=== PATIENT | female | born 1935 | race Two or more races ===

== ENCOUNTER 2018-09-19 13:40 | Inpatient (IN) | payer MEDICARE, OTHER ==
[~2018-09-19] VITALS: Ht 157.5 cm; Wt 55.8 kg
--- NOTE | 2018-09-19 13:40 | NUR ---
Patient is here in our ER department for medical clearance. Patient was accepted by psych Dr Schafer & [facility] hospitalist Gianni per nursing millwright supervisor Luis. Medical records from [facility] indicated that this patient has suicidal thoughts ( "cutting her wrist"). Patient is cooperative@this time. Patient's son & grandson are at bedside.
[2018-09-19] MEDS ORDERED: VORT5TAB PO (13:55)
[2018-09-19] MEDS ORDERED: [UNRECOGNIZED DRUG - OTHER] PO (14:00)
[2018-09-19] MEDS ORDERED: DOXA2TAB PO (14:00)
[2018-09-19] MEDS ORDERED: GABA-532 PO (14:00)
[2018-09-19] MEDS ORDERED: LIPA1CAP15 PO (14:00)
[2018-09-19] MEDS ORDERED: LOSA1TAB39 PO (14:00)
[2018-09-19] MEDS ORDERED: ZOLP10TA6 PO (14:00)
[2018-09-19 15:00] VITALS: BP 161/53
--- NOTE | 2018-09-19 15:00 | NUR ---
Patient is depressed, anxious affect, constantly crying, feeling hopeless and helpless, denies any suicidal ideation, but stated "This depression started when my doctor change my medication . patient lives at home with family feels helpless and hopeless on 5150 for DTS .
[2018-09-19] MEDS ORDERED: MAGNESIUM HYDROXIDE 30 ML LIQUID UDC PO PRN (15:15)
[2018-09-19] MEDS ORDERED: TEMAZEPAM 7.5 MG CAPSULE PO PRN (15:15)
[2018-09-19] MEDS ORDERED: LORAZEPAM 0.5 MG TABLET PO PRN (15:15)
[2018-09-19] MEDS ORDERED: ACETAMINOPHEN 325 MG TABLET PO PRN (15:15)
[2018-09-19] MEDS ORDERED: CLONIDINE HCL 0.1 MG TABLET PO PRN (16:45)
[2018-09-19] MEDS: LIPASE/PROTEASE/AMYLASE 4200 UNITS CAPSULE.DR PO SCH (17:00)
[2018-09-19] MEDS ORDERED: Medication Not On Formulary EA (Lipase/Protease/Amylase (Creon Dr 36,000 Units Capsule) PO SCH (17:00)
[2018-09-19] MEDS: GABAPENTIN 100 MG CAPSULE PO SCH (17:00)
[2018-09-19] MEDS: DOXAZOSIN 2 MG TABLET PO SCH (18:00)
[2018-09-19 20:04] VITALS: BP 105/59
[2018-09-20 07:00] LABS: BASOPHILS # (AUTO) 0.1 K/uL (0.0-8.0); EOSINOPHILS # (AUTO) 0.2 K/uL (0.0-0.7); EOSINOPHILS % (AUTO) 4.9 % (0.0-7.0); HEMATOCRIT 36.1 % (31.2-41.9); HEMOGLOBIN 12.1 g/dL (10.9-14.3); LYMPHOCYTES # (AUTO) 2.1 K/uL (20.0-40.0); LYMPHOCYTES % (AUTO) 48.2 % (20.5-51.5); MEAN CORPUSCULAR HEMOGLOBIN 30.5 uug (24.7-32.8); MEAN CORPUSCULAR HGB CONC 33 g/dL (32.3-35.6); MEAN CORPUSCULAR VOLUME 91.2 fL (75.5-95.3); MONOCYTES # (AUTO) 0.4 K/uL (2.0-10.0); MONOCYTES % (AUTO) 8.8 % (0.0-11.0); NEUTROPHILS # (AUTO) 1.5 K/uL (1.8-8.9); NEUTROPHILS % (AUTO) 36.1 % (38.5-71.5); PLATELET COUNT (AUTO) 209 K/uL (179-408); RED BLOOD CELL COUNT(AUTO) 3.96 MIL/uL (3.63-4.92); WHITE BLOOD COUNT (AUTO) 4.3 K/uL (3.8-11.8)
[2018-09-20 07:30] VITALS: BP 135/59
[2018-09-20 07:53] LABS: *BILIRUBIN,URIN NEGATIVE (NEGATIVE); *CLARITY,URINE CLEAR (CLEAR); *COLOR,URINE YELLOW (YELLOW); *KETONES,URINE NEGATIVE (NEGATIVE); *UROBILINOGEN,URINE 0.2 E.U./dl (NORMAL); LEUKOCYTE ESTERASE ,URINE 1+ (NEGATIVE); NITRITE, URINE NEGATIVE (NEGATIVE); PH,URINE 6.5 (5.0-8.0); UGLUCOSE NEGATIVE (NEGATIVE)
[2018-09-20 07:56] LABS: *BLOOD, URINE TRACE INTACT (NEGATIVE)
[2018-09-20 07:59] LABS: BACTERIA,URINE NONE SEEN /HPF (NONE SEEN); RBC,URINE 0-3 /HPF (0-3); SQUAMOUS EPITHELIAL CELL,UR NONE SEEN /HPF (NONE SEEN)
[2018-09-20 08:12] LABS: ALANINE AMINOTRANSFERASE 25 U/L (14-59); ALKALINE PHOSPHATASE 68 U/L (50-136); ASPARTATE AMINOTRANSFERASE 15 U/L (15-37); BILIRUBIN,TOTAL 0.6 mg/dL (0.2-1.0); CARBON DIOXIDE 30 mmol/L (21-32); CHLORIDE 104 mmol/L (98-107); CHOLESTEROL 195 mg/dL (<200); CREATININE 0.7 mg/dL (0.6-1.3); GLUCOSE 99 mg/dL (74-106); HDL CHOLESTEROL 52 mg/dL (40-60); POTASSIUM 3.7 mmol/L (3.5-5.1); TOTAL PROTEIN, SERUM 6.4 g/dL (6.4-8.2); TRIGLYCERIDES 89 MG/DL (30-150); UREA NITROGEN, BLOOD 16 mg/dL (7-18)
[2018-09-20 08:31] LABS: THYROID STIMULATING HORMONE 1.062 mIU/mL (0.358-3.740)
[2018-09-20] MEDS ORDERED: Medication Not On Formulary EA (Losartan/Hydrochlorothiazide (Losartan-Hctz 100-25 Mg Ta PO SCH (09:00)
[2018-09-20] MEDS: GABAPENTIN 100 MG CAPSULE PO SCH ×2 (10:02→17:06)
[2018-09-20] MEDS: HYDROCHLOROTHIAZIDE 25 MG TABLET PO SCH (10:03)
[2018-09-20] MEDS: LIPASE/PROTEASE/AMYLASE 4200 UNITS CAPSULE.DR PO SCH ×3 (10:05→17:06)
[2018-09-20] MEDS: LOSARTAN POTASSIUM 50 MG TABLET PO SCH (10:20)
--- NOTE | 2018-09-20 12:22 | NUR ---
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
[2018-09-20 15:43] VITALS: BP 140/55
--- NOTE | 2018-09-20 16:02 | NUR ---
Social Work Process Group Note: GOAL: Patient will participate in the group discussion of the day or actively listen to other peers responses. INTERVENTION: Social Work Oracle Etl Developer invited patient to participate in a group discussion held from 2:00-2:45 pm in the activities room. Social Work Oracle Etl Developer facilitated a group discussion with patients. SW Oracle Etl Developer explored current activities patients practice in order to increase their physical, mental and emotional wellbeing. SW Oracle Etl Developer educated patients on mindfulness as an additional way to relax and be present. SW [employer] Et[employer] Developer facilitated 3-minute mindfulness breathing exercise. RESPONSE: Patient expressed interest in participating in group discussion. Patient expressed that she enjoys spending time with her grandchildren and walking her dog to stay physically active. In addition, the pt. expressed she enjoys reading to stimulate her mind and prays often to help with her depressive symptoms. Pt. was very supportive of her peers and remained cooperative throughout discussion. PLAN: Patient will be invited to attend the next group discussion.
--- NOTE | 2018-09-20 16:18 | NUR ---
Initial Discharge Note: Patient is a 83 year old female who currently lives at home with her daughter [[address] [place] [address]]. Per patient she would like to return when ready. gas worker has reached out to Ariela, patient daughter [ ], to confirm patient can return to her however, she did not answer, so a voicemail was left. gas worker will continue to follow-up as necessary. gas worker will continue to collaborate with patient, MD, and family on a safe and proper discharge.
[2018-09-20] MEDS: CITALOPRAM 10 MG TABLET PO SCH (17:06)
[2018-09-20] MEDS: DOXAZOSIN 2 MG TABLET PO SCH (17:07)
[2018-09-20 20:00] VITALS: BP 131/56
[2018-09-20] MEDS: MAG HYDROX/AL HYDROX/SIMETH 30 ML LIQUID UDC PO PRN (22:42)
[2018-09-20] MEDS: ZOLPIDEM 5 MG TABLET PO PRN (23:40)
[2018-09-21 07:30] VITALS: BP 111/43
[2018-09-21] MEDS: LIPASE/PROTEASE/AMYLASE 4200 UNITS CAPSULE.DR PO SCH ×3 (09:11→17:53)
[2018-09-21] MEDS: GABAPENTIN 100 MG CAPSULE PO SCH ×2 (09:11→17:54)
[2018-09-21] MEDS: CITALOPRAM 10 MG TABLET PO SCH (09:11)
[2018-09-21] MEDS: LOSARTAN POTASSIUM 50 MG TABLET PO SCH (09:12)
[2018-09-21] MEDS: HYDROCHLOROTHIAZIDE 25 MG TABLET PO SCH (11:53)
[2018-09-21 15:24] VITALS: BP 123/47
[2018-09-21] MEDS: DOXAZOSIN 2 MG TABLET PO SCH (17:55)
[2018-09-21 20:37] VITALS: BP 116/42
[2018-09-21] MEDS: ZOLPIDEM 5 MG TABLET PO PRN (21:50)
--- NOTE | 2018-09-21 22:45 | NUR ---
Pt noted to be positive for UTI. [facility] was contacted and message was left for Dr Estes regarding the need for possible antibiotic tx. Awaiting call back.
[2018-09-22 07:30] VITALS: BP 126/51
[2018-09-22] MEDS: LIPASE/PROTEASE/AMYLASE 4200 UNITS CAPSULE.DR PO SCH ×3 (09:00→17:36)
[2018-09-22] MEDS: CITALOPRAM 10 MG TABLET PO SCH (09:01)
[2018-09-22] MEDS: GABAPENTIN 100 MG CAPSULE PO SCH ×2 (09:01→17:36)
[2018-09-22] MEDS: LOSARTAN POTASSIUM 50 MG TABLET PO SCH (09:01)
[2018-09-22] MEDS: HYDROCHLOROTHIAZIDE 25 MG TABLET PO SCH (09:02)
[2018-09-22 16:00] VITALS: BP 149/69
[2018-09-22] MEDS: CEphaleXIN 250 MG CAPSULE PO SCH (17:35)
[2018-09-22] MEDS: DOXAZOSIN 2 MG TABLET PO SCH (17:37)
[2018-09-22 19:50] VITALS: BP 137/45
[2018-09-22] MEDS: ZOLPIDEM 5 MG TABLET PO PRN (22:02)
[2018-09-23] MEDS: CEphaleXIN 250 MG CAPSULE PO SCH ×2 (04:48→16:31)
[2018-09-23 07:30] VITALS: BP 131/48
[2018-09-23] MEDS: CITALOPRAM 10 MG TABLET PO SCH (08:02)
[2018-09-23] MEDS: HYDROCHLOROTHIAZIDE 25 MG TABLET PO SCH (08:03)
[2018-09-23] MEDS: LOSARTAN POTASSIUM 50 MG TABLET PO SCH (08:03)
[2018-09-23] MEDS: GABAPENTIN 100 MG CAPSULE PO SCH ×2 (08:03→16:31)
[2018-09-23] MEDS: LIPASE/PROTEASE/AMYLASE 4200 UNITS CAPSULE.DR PO SCH ×3 (08:04→16:31)
--- NOTE | 2018-09-23 08:40 | NUR ---
Received patient, awake, alert x2-3, ambulating to bathroom. Not in any form of distress. Afebrile, denies any pain/burning on urination. Peasant upon approach, cooperative and took AM mediations.
[2018-09-23 16:20] VITALS: BP 116/48
[2018-09-23] MEDS: DOXAZOSIN 2 MG TABLET PO SCH (17:12)
[2018-09-23 20:45] VITALS: BP 107/63
[2018-09-23] MEDS: MAG HYDROX/AL HYDROX/SIMETH 30 ML LIQUID UDC PO PRN (21:14)
--- NOTE | 2018-09-23 21:15 | NUR ---
received to care, pleasant upon approach, alert and oriented x 2, isolating in her room. PRN mylanta was given at this time, for GI upset. currently in the hallway interacting with a peer. no distress noted. will continue to monitor closely.
[2018-09-23] MEDS: ZOLPIDEM 5 MG TABLET PO PRN (22:04)
--- NOTE | 2018-09-23 22:04 | NUR ---
PRN LISSETTE, GIVEN, FOR INSOMNIA. PT STATES GOOD RELIEF FROM [place].
--- NOTE | 2018-09-23 23:04 | NUR ---
appears to be asleep. no distress noted.
[2018-09-24] MEDS: CEphaleXIN 250 MG CAPSULE PO SCH ×2 (04:45→06:54)
[2018-09-24 07:30] VITALS: BP 133/51
[2018-09-24] MEDS: LIPASE/PROTEASE/AMYLASE 4200 UNITS CAPSULE.DR PO SCH ×2 (08:33→12:16)
[2018-09-24] MEDS: GABAPENTIN 100 MG CAPSULE PO SCH (08:33)
[2018-09-24] MEDS: CITALOPRAM 10 MG TABLET PO SCH (08:34)
[2018-09-24 09:57] VITALS: BP 131/51
[2018-09-24] MEDS: LOSARTAN POTASSIUM 50 MG TABLET PO SCH (09:57)
[2018-09-24] MEDS: HYDROCHLOROTHIAZIDE 25 MG TABLET PO SCH (09:57)
--- NOTE | 2018-09-24 10:17 | NUR ---
DC NOTE: Patient will be discharged back to her home [[address] [place] [address]; ], with her daughter, Ariela [[phone]]. Transportation will be provided by Ariela at 1:00pm. Patient is alert and oriented x4, denies any SI/HI, and is able to plan for self-care. Patient was briefed on discharge and aware and agreeable with plan. Patient will follow-up with primary care physician, Dr. Angelito Romo [[address] [place] [address]; ] and has a follow-up appointment scheduled for Monday, October 08, 2018 at 11:30am. Continuing care packet has been faxed to doctor's office. Patient currently has no outpatient psychiatrist and has been provided with a list of Medicare accepting psychiatrists in the [facility]. If patient is in need of psychiatric follow-up sooner, she has been provided with a referral to [facility] [ [place] [address]; ] where patient can walk-in for appointment Thursday thru Thursday anytime between 8:00pm-5:00pm. Patient will also receive home health services through [facility] [[address] [place] [address]; ]. squadron worker spoke with Fide, pharmacy intake coordinator, who states they will assess patient within 24 hours of discharge. Patient has also been provided with a list of Medicare accepting clinical psychologists in the [facility]. Patient was given outpatient mental health resources [facility] , Jacqueline Capps , and the National Suicide Prevention Lifeline .
== END 2018-09-24 13:30 | disposition home health service (06) | DRG 885 ==
LOC: ER 13:40 → GPS 14:47
PROVIDERS: ADMIT Psychiatry & Neurology Psychiatry; ATTEND Nurse Practitioner Acute Care
DX: F32.3 Major depressive disorder, single episode, severe with psychotic features (principal); N39.0 Urinary tract infection, site not specified; J44.9 Chronic obstructive pulmonary disease, unspecified; Z96.641 Presence of right artificial hip joint; K58.9 Irritable bowel syndrome, unspecified; H91.91 Unspecified hearing loss, right ear; E11.9 Type 2 diabetes mellitus without complications; I10 Essential (primary) hypertension
CPT/HCPCS: 36415; 71045; 83735; 84100; 84443; 85025; 87086; 93005; A4663